=== PATIENT | female | born 1990 | race Native Hawaiian/Other Pacific Islander ===

== ENCOUNTER 2020-04-06 19:08 | Emergency (ER) | payer OTHER, SELFPAY ==
[2020-04-06] VITALS (10 sets, daily range): BP systolic 113–153; BP diastolic 56–84; PULSE 67–87; RESP 12–16; TEMP 36.6; O2SAT 92–97; BMI 44.1
[2020-04-06 19:45] LABS: Prothrombin Time 11.6 SECONDS (10.1-12.7)
[2020-04-06 19:46] LABS: Add Manual Diff / Slide Review NO; Basophils Absolute Auto 100 /uL (0-100); Basophils Percent Auto 0.4 % (0-2); Eosinophils Absolute Auto 0 /uL (0-450); Hematocrit 39.6 % (36-46); Hemoglobin 12.8 g/dL (12.0-16.0); Lymphocytes Absolute Auto 1200 /uL (1100-4500); Lymphocytes Percent Auto 9.6 % (25-40); Mean Corpuscular HGB Conc 32.4 % (30-36); Mean Corpuscular Hemoglobin 27.7 PG (26-34); Mean Corpuscular Volume 85.4 fL (80-100); Monocytes Absolute Auto 400 /uL (0-900); Monocytes Percent Auto 3.5 % (3-14); Neutrophils Absolute Auto 10900 /uL (1500-7000); Neutrophils Percent Auto 86.5 % (50-75); Platelet Count 362 X10^3/uL (150-400); Red Blood Cell Count 4.63 X10^6/uL (4.0-5.2); Red Cell Distribution Width 13.2 % (11.6-14.8); White Blood Cell Count 12.5 X10^3/uL (4.5-11.0)
[2020-04-06 19:48] LABS: PTT Partial Thromboplastin Tim 28 SECONDS (26.4-36.2)
[2020-04-06 19:50] LABS: Alanine Aminotransferase 185 IU/L (<35); Albumin 4.9 g/dL (3.5-5.0); Albumin Globulin Ratio 1.3 (1.0-2.8); Alkaline Phosphatase 117 U/L (38-126); Aspartate Aminotransferase 340 IU/L (14-36); BUN Creatinine Ratio 31.8 (6-22); Bilirubin Total 1.3 mg/dL (0.2-1.3); Blood Urea Nitrogen 14 mg/dL (7-17); Calcium 9.2 mg/dL (8.4-10.2); Carbon Dioxide 28 mmol/L (22-32); Chloride 103 mmol/L (98-107); Estimated Glomerular Filt Rate > 60.0 mL/min (>60); Globulin 3.8 g/dL (1.7-4.1); Glucose 166 mg/dL (70-100); HEMOLYSIS < 15 (0-50); Lipase 66 U/L (23-300); Potassium 4.2 mmol/L (3.4-5.1); Sodium 139 mmol/L (137-145); Total Protein 8.7 g/dL (6.3-8.2)
--- NOTE | 2020-04-06 20:16 | ED_ITS ---
HPI - Abdominal Pain General Chief Complaint: Abdominal Pain Stated Complaint: Upper Abd Pain Time Seen by Provider: 04/06/20 19:45 Source: patient and family Mode of arrival: Ambulatory Limitations: no limitations History of Present Illness HPI narrative: 30-year-old female nonsmoker without significant medical history presents with her in the chief complaint of right upper quadrant pain with some nausea and vomiting earlier in the day that has since resolved. Her symptoms started at about 9:00 a.m. while working in included upper abdominal pain without radiation that seemed to be better with rest and worse with movement. She was seen and evaluated at an outside facility and had extensive lab work as well as a CT scan of her abdomen and pelvis which were largely unremarkable. She was given reassurance and discharged home. Over the course of the afternoon she had some more vomiting and another episode of pain at which point she wanted to be re-evaluated. On arrival she is essentially asymp tomatic. She has had no runny nose, sore throat or cough. She has had no chest pain or shortness of breath. She denies any new medications or dietary change. MD complaint: abdominal pain Onset (ago): hour(s) Pain Consistency: intermittent and now resolved Location: RUQ Severity: moderate Quality: cramping and aching Radiation: none Migration to: no migration Relieving factors: nothing Exacerbating factors: nothing Associated symptoms: nausea and vomiting Review of Systems Constitutional Constitutional: Denies chills, Denies fatigue, Denies fever(s), Denies frequent falls, Denies lethargy and Denies weakness Eyes Eyes: Denies change in vision, Denies eye discharge, Denies irritation and Denies loss of vision ENT Ears, Nose, Mouth, and Throat: Denies change in voice, Denies dizziness, Denies neck pain, Denies sore throat and Denies throat swelling Cardiovascular Cardiovascular: Denies chest pain, Denies irregular heart rhythm, Denies lightheadedness, Denies palpitations, Denies dyspnea, Denies dyspnea on exertion and Denies orthopnea Respiratory Respiratory: Denies cough, Denies dyspnea, Denies dyspnea on exertion and Denies wheezing Gastrointestinal Gastrointestinal: Reports abdominal pain, Denies change in bowel habits, Denies diarrhea, Reports nausea and Reports vomiting Musculoskeletal Musculoskeletal: Denies neck pain and Denies numbness Integumentary/Breasts Skin/Breast: Denies pruritus, Denies erythema, Denies rash and Denies wounds Neurologic Neurologic: Denies behavioral changes, Denies confusion, Denies dizziness, Denies frequent falls, Denies loss of vision, Denies numbness and Denies weakness Psychiatric Psychiatric: Denies anxiety, Denies behavioral changes, Denies confusion, Denies depression, Denies homicidal ideation and Denies suicidal ideation Endocrine Endocrine: Denies fatigue, Denies flushing and Denies palpitations Hematologic/Lymphatic Hematologic/Lymphatic: Denies easy bruising Allergic/Immunologic Allergic/Immunologic: Denies urticaria, Denies throat swelling and Denies wheezing Patient History Smoking Status: Never smoker alcohol intake frequency: 0-2 drinks per day Substance Use Type: does not use Exam Narrative Exam Narrative: GENERAL: [30] year old patient appears stated age. Well- nourished, well-developed patient, in mild distress. HEAD: Atraumatic. Normocephalic. EYES: Pupils equal round and reactive. Extraocular motions intact. No scleral icterus. No injection or drainage. ENT: Nose without bleeding, purulent drainage. Throat without erythema, tonsillar hypertrophy or exudate. Airway patent. NECK: Trachea midline. Non tender CARDIOVASCULAR: Regular rate and rhythm without murmurs, gallops, or rubs. RESPIRATORY: Clear to auscultation. Breath sounds equal bilaterally. No wheezes, rales, or rhonchi. GASTROINTESTINAL: Abdomen soft, non-tender, nondistended. EXTREMITIES: No edema or joint tenderness. BACK: Nontender without deformity or crepitance. No flank tenderness. NEURO: AOx3. SKIN: No rash or erythema of visible areas Initial Vital Signs Initial Vital Signs: Vital Signs Temperature 97.9 F 04/06/20 19:31 Pulse Rate 77 04/06/20 19:31 Respiratory Rate 16 04/06/20 19:31 Blood Pressure 153/84 H 04/06/20 19:31 Pulse Oximetry 97 04/06/20 19:31 Course Course Course Narrative: records received from [facility]. Very reassuring labs and unremarkable findings on CT. Orders Ordered: ED Orders 04/06/20 19:28 Complete Blood Count AUTO DIFF Stat Comprehensive Metabolic Panel Stat Lipase Stat Partial Thromboplastin Time Stat Prothrombin Time INR Stat 04/06/20 19:34 EKG-12 Lead Stat 04/06/20 20:24 US abdomen limited Stat Vital Signs Vital signs: Vital Signs - 8 hr 04/06/20 20:30 04/06/20 21:00 04/06/20 21:30 Pulse Rate 87 81 84 Respiratory Rate Blood Pressure Pulse Oximetry 97 96 96 04/06/20 22:00 04/06/20 22:30 04/06/20 22:31 Pulse Rate 77 74 67 Respiratory Rate Blood Pressure 119/61 113/56 L Pulse Oximetry 97 92 96 04/06/20 22:56 Pulse Rate 84 Respiratory Rate 12 Blood Pressure 113/56 L Pulse Oximetry 95 MDM - Abdominal Pain Lab Data Result diagrams: 04/06/20 19:28 04/06/20 19:28 Labs: Lab Results 04/06/20 04/06/20 04/06/20 Range/Units 19:28 19:28 19:28 WBC 12.5 H (4.5-11.0) X10^3/uL RBC 4.63 (4.0-5.2) X10^6/uL Hgb 12.8 (12.0-16.0) g/dL Hct 39.6 (36-46) % MCV 85.4 (80-100) fL MCH 27.7 (26-34) PG MCHC 32.4 (30-36) % RDW 13.2 (11.6-14.8) % Plt Count 362 (150-400) X10^3/uL Neut % (Auto) 86.5 H (50-75) % Lymph % (Auto) 9.6 L (25-40) % [place] % (Auto) 3.5 (3-14) % Eos % (Auto) 0.0 L (2-4) % Baso % (Auto) 0.4 (0-2) % Neut # (Auto) 09001 H (5432-6728) /uL Lymph # (Auto) 1200 (6172-2404) /uL [place] # (Auto) 400 (0-900) /uL Eos # (Auto) 0 (0-450) /uL Baso # (Auto) 100 (0-100) /uL PT 11.6 (10.1-12.7) SECONDS INR 1.0 (0.9-1.3) APTT 28 (26.4-36.2) SECONDS Sodium 139 (137-145) mmol/L Potassium 4.2 (3.4-5.1) mmol/L Chloride 103 (98-107) mmol/L Carbon Dioxide 28 (22-32) mmol/L BUN 14 (7-17) mg/dL Creatinine 0.44 L (0.52-1.04) mg/dL Estimated GFR > 60.0 (>60) mL/min BUN/Creatinine Ratio 31.8 H (6-22) Glucose 166 H (70-100) mg/dL Calcium 9.2 (8.4-10.2) mg/dL Total Bilirubin 1.3 (0.2-1.3) mg/dL AST 340 H (14-36) IU/L ALT 185 H (<35) IU/L Alkaline Phosphatase 117 (38-126) U/L Total Protein 8.7 H (6.3-8.2) g/dL Albumin 4.9 (3.5-5.0) g/dL Globulin 3.8 (1.7-4.1) g/dL Albumin/Globulin Ratio 1.3 (1.0-2.8) Lipase 66 (23-300) U/L Point of care testing: Point of Care Testing Test Results Negative Urine Dip Bedside Urine Glucose Negative Bedside Urine Bilirubin - Negative Bedside Urine Ketone +/- 5 Urine Specific [place] 1.025 Bedside Urine Occult Blood - Negative Bedside Urine pH 6.0 Bedside Urine Protein - Negative Bedside Urine Urobilinogen - Negative Bedside Urine Nitrite - Negative Bedside Urine Leukocytes - Negative Esterase Imaging Data US - abdomen: Radiologist's Impression: [address] [id number] ReportSigned Patient: Veronica Logan GMR#: [id number]: 1990Acct:[id number]/Sex: 30 FDate of Service: 04/06/20Loc: EDAccession Number: [id number] Procedure: US abdomen limited Ordering Provider: James Marcus D.O. PROCEDURE: US ABDOMEN LIMITED INDICATIONS: RUQ pain, N/V, rising enzymes over the day TECHNIQUE: Real-time focused scanning was performed of the abdomen, with image documentation. COMPARISON: None. FINDINGS: The liver is enlarged measuring 20.2 cm in length. The parenchyma is diffusely hyperechoic and difficult to penetrate with ultrasound. No visible intrahepatic biliary dilatation. The common duct is 4.3 mm. The gallbladder is surgically absent. The pancreas was not well seen due to lack of good acoustic window. No free fluid in Morison's pouch. IMPRESSION: 1. Hepatomegaly and hepatic steatosis. 2. Post cholecystectomy without biliary dilatation. Dictated by: Marleni Han M.D. on 04/06/2020 at 22:22 Approved by: Marleni Han M.D. on 04/06/2020 at 22:23 MDM Narrative Medical decision making narrative: Multiple etiologies for patient's symptoms considered including: [liver/biliary disease vs. bowel obstruction vs. other] Patient's symptoms improved over duration of stay with above-stated therapies. Findings and discharge diagnosis discussed with patient/family followed by verbalization of understanding Return precautions discussed with patient/family whom verbalize understanding. Discharge Plan Departure Patient Disposition: Home Clinical Impression: Abdominal pain Qualifiers: Abdominal location: right upper quadrant Qualified Code(s): R10.11 - Right upper quadrant pain Instructions: DI for Abdominal Pain-Adult Activity Restrictions/Additional Instructions: 1. Drink plenty of fluids with frequent small sips. 2. For the next 24 hours a clear liquid diet is advised. After that please employ a B.R.A.T. diet which would include bananas, rice, apples, toast and other mild food items 3. Please take medications as directed. 4. Please follow-up with your doctor in the next 1-2 days. Call the office for an appointment. 5. Please return to the emergency Department for any worsening or persistent symptoms, such as increasing pain or fever.
--- NOTE | 2020-04-06 20:24 | DI.US.S_ITS ---
PROCEDURE: US ABDOMEN LIMITED INDICATIONS: RUQ pain, N/V, rising enzymes over the day TECHNIQUE: Real-time focused scanning was performed of the abdomen, with image documentation. COMPARISON: None. FINDINGS: The liver is enlarged measuring 20.2 cm in length. The parenchyma is diffusely hyperechoic and difficult to penetrate with ultrasound. No visible intrahepatic biliary dilatation. The common duct is 4.3 mm. The gallbladder is surgically absent. The pancreas was not well seen due to lack of good acoustic window. No free fluid in Morison's pouch. IMPRESSION: 1. Hepatomegaly and hepatic steatosis. 2. Post cholecystectomy without biliary dilatation. Dictated by: Marleni Han M.D. on 04/06/2020 at 22:22 Approved by: Marleni Han M.D. on 04/06/2020 at 22:23
== END 2020-04-06 22:58 | disposition home or self-care (01) ==
PROVIDERS: Emergency Provider Emergency Medicine
DX: R10.11 Right upper quadrant pain (principal); R11.2 Nausea with vomiting, unspecified
CPT/HCPCS: 36415; 76705; 80053; 81003; 81025; 83690; 85025; 85610; 85730; 99283; 99284

== ENCOUNTER → 2021-02-12 11:28 | Outpatient (CLI) | payer OTHER, SELFPAY | PROVIDERS: Referring Provider Internal Medicine; Visit Provider Internal Medicine | DX: Z23 Encounter for immunization (principal) | CPT/HCPCS: 90471; 90686 ==

== ENCOUNTER → 2022-01-28 17:19 | Outpatient (CLI) | payer OTHER, SELFPAY | PROVIDERS: Referring Provider Internal Medicine; Visit Provider Internal Medicine | DX: Z23 Encounter for immunization (principal) | CPT/HCPCS: 90471; 90686 ==

== ENCOUNTER → 2023-02-09 14:43 | Outpatient (CLI) | payer OTHER, SELFPAY | PROVIDERS: Referring Provider Family Medicine; Visit Provider Family Medicine | DX: Z23 Encounter for immunization (principal) | CPT/HCPCS: 90471; 90686 ==

== ENCOUNTER → 2024-02-08 16:09 | Outpatient (CLI) | payer OTHER, SELFPAY | PROVIDERS: Referring Provider Internal Medicine; Visit Provider Internal Medicine | DX: Z23 Encounter for immunization (principal) | CPT/HCPCS: 90471; 90656 ==

== ENCOUNTER → 2024-08-05 13:50 | Outpatient (CLI) | payer OTHER, SELFPAY ==
[2024-08-05 22:25] LABS: Urine N gonorrhoeae NOT DETECTED
[2024-08-05 22:33] LABS: Urine Chlamydia NOT DETECTED
== END ==
PROVIDERS: PCP Nurse Practitioner; Visit Provider Student in an Organized Health Care Education/Training Program
DX: Z11.3 Encounter for screening for infections with a predominantly sexual mode of transmission (principal)
CPT/HCPCS: 87491; 87591

== ENCOUNTER → 2024-08-15 13:19 | Outpatient (CLI) | payer OTHER, SELFPAY ==
[2024-08-15 13:58] LABS: Add Manual Diff / Slide Review NO; Basophils Absolute Auto 0 /uL (0-100); Basophils Percent Auto 0.4 % (0-2); Eosinophils Absolute Auto 100 /uL (0-450); Eosinophils Percent Auto 0.9 % (2-4); Hematocrit 34.3 % (36-46); Hemoglobin 11.7 g/dL (12.0-16.0); Lymphocytes Absolute Auto 2600 /uL (1100-4500); Lymphocytes Percent Auto 24.2 % (25-40); Mean Corpuscular HGB Conc 34.2 % (30-36); Mean Corpuscular Hemoglobin 28.9 PG (26-34); Mean Corpuscular Volume 84.5 fL (80-100); Monocytes Absolute Auto 500 /uL (0-900); Monocytes Percent Auto 4.7 % (3-14); Neutrophils Absolute Auto 7400 /uL (1500-7000); Neutrophils Percent Auto 69.8 % (50-75); Platelet Count 347 X10^3/uL (150-400); Red Blood Cell Count 4.06 X10^6/uL (4.0-5.2); Red Cell Distribution Width 13.1 % (11.6-14.8); White Blood Cell Count 10.6 X10^3/uL (4.5-11.0)
[2024-08-15 14:06] LABS: Hemoglobin A1C% w Est Avg Glu 5.4 % (4.0-6.0)
[2024-08-15 14:16] LABS: HEMOLYSIS < 15 (0-50); Iron 87 ug/dL (37-170)
[2024-08-15 14:18] LABS: Alanine Aminotransferase 21 IU/L (<35); Albumin 4.8 g/dL (3.5-5.0); Albumin Globulin Ratio 1.6 (1.0-2.8); Alkaline Phosphatase 67 U/L (38-126); Aspartate Aminotransferase 24 IU/L (14-36); BUN Creatinine Ratio 27.3 (6-22); Bilirubin Total 0.4 mg/dL (0.2-1.3); Blood Urea Nitrogen 12 mg/dL (7-17); Carbon Dioxide 22 mmol/L (22-32); Chloride 102 mmol/L (98-107); Estimated Glomerular Filt Rate > 60 mL/min (>60); Glucose 117 mg/dL (70-100); HEMOLYSIS < 15 (0-50); Potassium 3.7 mmol/L (3.4-5.1); Sodium 134 mmol/L (137-145); Total Protein 7.8 g/dL (6.3-8.2)
[2024-08-15 14:26] LABS: Percent Iron Saturation 24 % (15-50); Total Iron Binding Capacity 368 ug/dL (265-497); Transferrin 315 mg/dL (206-381)
[2024-08-15 14:28] LABS: Natera Collection Specimen Collected
[2024-08-15 15:16] LABS: Hepatitis B Surface Antigen NEGATIVE s/c (NEGATIVE); Rubella Antibody IgG 22.2 IU/mL (>15)
[2024-08-15 15:28] LABS: HIV 1 & 2 Ab/Ag 4th Gen Combo NEGATIVE (NEGATIVE); Hep C Virus Ab w/Reflex Quant NEGATIVE s/c (NEGATIVE)
[2024-08-16 07:36] LABS: RPR Screen Non Reactive (Non Reactive)
[2024-08-16 09:36] LABS: Varicella IgG Antibody Reactive (Non Reactive)
== END ==
PROVIDERS: PCP Nurse Practitioner; Referring Provider Student in an Organized Health Care Education/Training Program; Visit Provider Student in an Organized Health Care Education/Training Program
DX: O09.899 Supervision of other high risk pregnancies, unspecified trimester (principal); O99.210 Obesity complicating pregnancy, unspecified trimester; R79.89 Other specified abnormal findings of blood chemistry; K76.0 Fatty (change of) liver, not elsewhere classified
CPT/HCPCS: 36415; 80053; 80055; 83036; 83540; 83550; 86787; 86803; 86850; 86900; 86901; 87077; 87086; 87186; 87389

== ENCOUNTER 2024-09-04 00:20 | Emergency (ER) | payer OTHER, SELFPAY ==
[2024-09-04 01:21] VITALS: BP 142/78; PULSE 102; RESP 20; TEMP 37.2; O2SAT 100; BMI 36.4
--- NOTE | 2024-09-04 01:21 | ED.FEMALEGU ---
HPI - Female Genitourinary General Chief complaint: Vaginal Bleeding Stated complaint: 13 weeks/bleeding Time Seen by Provider: 09/04/24 01:20 History of Present Illness HPI Narrative: 34-year-old female no significant past medical history presents to the emergency department for vaginal bleeding, she states that she has a proximally 13 weeks does follow up with Dr. Bryson, states that she had a 10 week ultrasound did show intrauterine , she states that yesterday started noticing some bright red spotting/bleeding. Denies any actual pelvic cramping or abdominal pain. Denies any trauma. Denies any other symptoms at this time. Related Data Home Medications Medication Instructions Recorded Confirmed vitamin-ferrous sulfate tab PO 07/22/24 08/05/24 27 mg iron-folic acid 0.8 mg tablet Allergies Allergy/AdvReac Type Severity Reaction Status Date / Time No Known Drug Allergies Allergy Unverified 08/05/24 13:36 Review of Systems Review of Systems Narrative: General: Denies fever, chills, weight loss HEENT: Denies headache, eye drainage, eye irritation, head trauma, sore throat, voice change Cardiovascular: Denies any chest pain, palpitations, tachycardia Respiratory: Denies any shortness of breath, cough, wheeze, stridor GI/: Positive vaginal bleeding, Denies any abdominal pain, nausea, vomiting, diarrhea, bright red blood per rectum, melanotic stools, urinary frequency, urinary retention, dysuria, hematuria MSK: Denies any joint pain, muscle pains, swelling Skin: Denies any rashes, lesions, discoloration Neuro: Denies any headache, lightheadedness, dizziness, fainting, weakness Psych: Denies SI/HI Patient History Medical History (Updated 09/04/24 @ 02:39 by Lucio William DO) Depression (~2016) Anxiety (~2016) Chicken pox (~1996) Arm fracture, right Gestational diabetes Surgical History (Updated 08/26/24 @ 20:04 by Anette Bautista) Anesthesia History of cholecystectomy (~07/2018) H/O gastric sleeve (~03/2023) Family History (Updated 07/22/24 @ 15:40 by Syl Givens RN) Father Bladder cancer Smoker Mother Smoker Asthma Grandmother Breast cancer Granddaughter Diabetes mellitus Exam Narrative Exam Narrative: General: Cooperative, well-developed, not in acute distress HEENT: Normocephalic, atraumatic, PERRLA, normal sclera, eyelids normal Neck: Active full range of motion, atraumatic Chest: Normal to inspection, negative crepitus, no overlying erythema ecchymosis Respiratory: Normal respiratory effort, not in acute respiratory distress, clear to auscultation bilaterally negative cough, wheeze, tachypnea, rhonchi, rales Cardiology: Regular rate rhythm negative gallop, murmur, rubs GI/: No tenderness to palpation, soft, non rigid, normal to inspection, exam deferred MSK: Full active range of motion in all 4 extremities, atraumatic, no tenderness to palpation of any bony prominences Skin: No rashes or lesions noted Neuro: Alert awake oriented x3, moves all 4 extremities spontaneously, cranial nerves intact, able to answer all questions appropriately follows commands appropriately Psych: Cooperative, negative suicidal or homicidal ideations Initial Vital Signs Initial Vital Signs: Vital Signs Temperature 99.0 F 09/04/24 01:21 Pulse Rate 102 H 09/04/24 01:21 Respiratory Rate 20 09/04/24 01:21 Blood Pressure 142/78 H 09/04/24 01:21 Pulse Oximetry 100 09/04/24 01:21 Oxygen Delivery Method Room Air 09/04/24 01:21 Course Orders Ordered: ED Orders 09/04/24 01:32 OB <= 14 weeks fetus Stat 09/04/24 01:40 Urine Microscopic Stat 09/04/24 01:45 ABO RH Type Stat BMP [Basic Metabolic Panel] Stat CBC Auto Diff [Complete Blood Count AUTO DIFF] Stat HCG Quantitative /Beta subunit Stat Vital Signs Vital signs: Vital Signs - 8 hr 09/04/24 01:21 Temperature 99.0 F Pulse Rate 102 H Respiratory Rate 20 Blood Pressure 142/78 H Pulse Oximetry 100 Oxygen Delivery Method Room Air MDM - Female Genitourinary Differential Diagnosis Differential diagnosis: Likely urinary tract infection and other (Threatened , ) Lab Data 09/04/24 01:45 09/04/24 01:45 Labs: Lab Results 09/04/24 09/04/24 Range/Units 01:40 01:45 WBC 14.2 H (4.5-11.0) X10^3/uL RBC 4.24 (4.0-5.2) X10^6/uL Hgb 12.2 (12.0-16.0) g/dL Hct 36.1 (36-46) % MCV 85.1 (80-100) fL MCH 28.7 (26-34) PG MCHC 33.8 (30-36) % RDW 13.7 (11.6-14.8) % Plt Count 323 (150-400) X10^3/uL Neut % (Auto) 77.6 H (50-75) % Lymph % (Auto) 15.3 L (25-40) % [place] % (Auto) 5.5 (3-14) % Eos % (Auto) 1.1 L (2-4) % Baso % (Auto) 0.5 (0-2) % Neut # (Auto) 89079 H (8865-4541) /uL Lymph # (Auto) 2200 (1879-4054) /uL [place] # (Auto) 800 (0-900) /uL Eos # (Auto) 200 (0-450) /uL Baso # (Auto) 100 (0-100) /uL Sodium 136 L (137-145) mmol/L Potassium 3.8 (3.4-5.1) mmol/L Chloride 102 (98-107) mmol/L Carbon Dioxide 22 (22-32) mmol/L BUN 12 (7-17) mg/dL Creatinine 0.46 L (0.52-1.04) mg/dL Estimated GFR > 60 (>60) mL/min BUN/Creatinine Ratio 26.1 H (6-22) Glucose 99 (70-99) mg/dL Calcium 9.3 (8.4-10.2) mg/dL Urine RBC 0-1/hpf (0-5/HPF) Urine WBC None seen (0-5/HPF) Ur Squamous Epith Cells 0-1 /hpf (0-5/HPF) Urine Bacteria None seen (None) Urine Mucus 1+ H (Negative) Ur Culture Indicated? Cult not indicated Vol Urine Centrifuged 10ml (spun) Blood Type O Positive Urine Dip Bedside Urine Glucose Negative Bedside Urine Bilirubin - Negative Bedside Urine Ketone ++ 40 Urine Specific [place] 1.030 Bedside Urine Occult Blood + Bedside Urine pH 6.0 Bedside Urine Protein - Negative Bedside Urine Urobilinogen - Negative Bedside Urine Nitrite - Negative Bedside Urine Leukocytes - Negative Esterase Imaging Data US - OB: Radiologist's Impression: Preliminary read showing demise estimated at 8 weeks 2 days MDM Narrative Medical decision making narrative: 34-year-old female without any significant past medical history presenting for vaginal bleeding states he has proximally 13 weeks does follow up with Dr. Bryson, states that last night started to have some bright red blood with bleeding but no pelvic pain or abdominal pain. This is her 2nd . Patient had lab work urinalysis and ultrasound performed here. Lab work without any acute findings hemoglobin 12.2 noted leukocytosis of 14.2 but more likely secondary to patient currently , urinalysis without any signs of urine infection or asymptomatic bacteriuria, ultrasound unfortunately showing demise at 8 weeks 2 days, patient hemodynamically stable, did instruct patient to follow up with her OBGYN to discuss next steps and plans. She was given strict return precautions she verbalized understanding of this and agrees with being discharged home with outpatient follow up Discharge Plan Departure Patient Disposition: Home Clinical Impression: demise Instructions: DI for Miscarriage Activity Restrictions/Additional Instructions: Please follow up with your OBGYN Please read the discharge instructions sheet carefully and bring all papers to all doctor follow-up visits, as it may contain information that your doctor may want to see. Disease processes change and evolve, if your symptoms worsen or if you develop any new symptoms that are concerning to you please return for evaluation. Your evaluation today does not show any evidence of any life-threatening/serious illnesses requiring admission to the hospital or surgery. Please follow-up with your doctor for re-evaluation in approximately 1 day. Seek immediate medical attention for any worrisome symptoms. *If you do not have a primary care provider please contact the [facility] Resource line at [phone]. They will ask some questions about your medical history and help get you set up with a doctor in the community. Prescriptions: No Action vit-ferrous sulfat-FA 27 mg iron- 0.8 mg tablet PO Referrals: Celi Albert ARNP [Primary Care Provider] - Stand Alone Forms: Patient Portal/API/Survey
--- NOTE | 2024-09-04 01:32 | DI.US.S_ITS ---
PROCEDURE: US OB <= 14 WEEKS FETUS INDICATIONS: vaginal bleeding (13weeks) OUTSIDE/PRIOR DATING DATA: Last menstrual period (LMP): 06/05/2024 LMP-based estimated date of delivery (NAHED): 03/12/2025 First dating scan (date and location): Size 725 Estimated date of delivery (NAHED) from first dating scan: 11/30/2024. TECHNIQUE: Real-time scanning was performed of the fetus and maternal pelvic organs, with image documentation. Endovaginal scanning was also performed to better visualize the fetus and maternal ovaries. COMPARISON: [facility], , OB <= 14 WEEKS FETUS, 08/05/2024, 13:55. FINDINGS: Embryo: Single intrauterine gestational sac is seen with fetus noted. [place]-rump length measures 1.8 cm. Estimated gestational age is 8 weeks, 2 days. Estimated gestational age based on last menstrual period is 13 weeks, 0 day. Heart rate: No cardiac activity is detected. Maternal organs: Ovaries are not visualized. No adnexal mass. IMPRESSION: Finding is consistent with intrauterine demise. Follow-up with serial beta HCG level is recommended. We strive to produce accurate, complete, and clear reports of imaging services. To assist us in improving patient care, this report was composed using standard report templates and voice recognition software. Therefore, it may contain abnormal punctuation, insertions and/or omissions. Occasional wrong-word or sound-alike substitutions may occur. Though we review the report and make efforts to correct it, we do recommend that the report be read carefully in proper context to recognize any text inaccuracies. Dictated by: Emiliano Fine M.D. on 09/04/2024 at 8:45 Approved by: Emiliano Fine M.D. on 09/04/2024 at 8:47
[2024-09-04 01:55] LABS: Add Manual Diff / Slide Review NO; Basophils Absolute Auto 100 /uL (0-100); Basophils Percent Auto 0.5 % (0-2); Eosinophils Absolute Auto 200 /uL (0-450); Eosinophils Percent Auto 1.1 % (2-4); Hematocrit 36.1 % (36-46); Hemoglobin 12.2 g/dL (12.0-16.0); Lymphocytes Absolute Auto 2200 /uL (1100-4500); Lymphocytes Percent Auto 15.3 % (25-40); Mean Corpuscular HGB Conc 33.8 % (30-36); Mean Corpuscular Hemoglobin 28.7 PG (26-34); Mean Corpuscular Volume 85.1 fL (80-100); Monocytes Absolute Auto 800 /uL (0-900); Monocytes Percent Auto 5.5 % (3-14); Neutrophils Absolute Auto 11100 /uL (1500-7000); Neutrophils Percent Auto 77.6 % (50-75); Platelet Count 323 X10^3/uL (150-400); Red Blood Cell Count 4.24 X10^6/uL (4.0-5.2); Red Cell Distribution Width 13.7 % (11.6-14.8); White Blood Cell Count 14.2 X10^3/uL (4.5-11.0)
[2024-09-04 02:14] LABS: BUN Creatinine Ratio 26.1 (6-22); Blood Urea Nitrogen 12 mg/dL (7-17); Calcium 9.3 mg/dL (8.4-10.2); Carbon Dioxide 22 mmol/L (22-32); Chloride 102 mmol/L (98-107); Estimated Glomerular Filt Rate > 60 mL/min (>60); Glucose 99 mg/dL (70-99); HEMOLYSIS < 15 (0-50); Potassium 3.8 mmol/L (3.4-5.1); Sodium 136 mmol/L (137-145)
[2024-09-04 02:17] LABS: Bacteria Urine None Seen; Culture Indicated Urine Cult Not Indicated; RBC Urine 0-1/HPF (0-5/HPF); Squamous Epithelial Cell Urine 0-1 /HPF (0-5/HPF); Urine Volume 10mL (spun); WBC Urine None Seen (0-5/HPF)
[2024-09-04 02:18] LABS: Mucus Urine 1+ (Negative)
[2024-09-04 03:17] VITALS: BP 125/68; PULSE 95; RESP 18; O2SAT 100
== END 2024-09-04 03:18 | disposition home or self-care (01) ==
PROVIDERS: Emergency Provider Student in an Organized Health Care Education/Training Program; PCP Nurse Practitioner
DX: O03.9 Complete or unspecified spontaneous abortion without complication (principal)
CPT/HCPCS: 36415; 76801; 76817; 80048; 81003; 81015; 84702; 85025; 86900; 86901; 99283; 99284